=== PATIENT | male | born 1965 | race Caucasian/White ===

== ENCOUNTER 2016-12-25 16:37 | Emergency (ER) | payer SELFPAY ==
[2016-12-25] MEDS ORDERED: Ondansetron HCl/PF 4 MG/2 ML Vial ONE (16:49)
[2016-12-25] MEDS ORDERED: Ketorolac Tromethamine 30 MG/ML VIAL ONE (16:49)
[2016-12-25] MEDS ORDERED: diphenhydrAMINE HCl 50 MG/ML 1 ML VIAL ONE (16:49)
[2016-12-25 17:16] LABS: Blood, Urine Large (Negative); Clarity Turbid (Clear); Glucose, Urine (Dipstick) Negative (Negative); Leukocyte Negative (Negative); Nitrite Negative (Negative); Protein, Urine (Dipstick) 100 mg/dL (Neg-Trace); pH, Urine 8.5 (5.0-9.0)
[2016-12-25 17:18] LABS: #Basophils 0.1 thou/uL (0.0-0.2); #Lymphocytes 1.2 thou/uL (1.20-3.40); #Monocytes 0.5 thou/uL (0.11-0.59); #Neutrophils 11.9 thou/uL (1.40-6.50); %Basophils 0.4 % (0.0-1.0); %Eosinophils 0.3 % (0.0-10.0); %Lymphocytes 8.8 % (21.0-51.0); %Monocytes 3.8 % (0.0-10.0); %Neutrophils 86.8 % (42.0-75.0); Hemoglobin 16.1 g/dL (14.0-18.0); Mean Corpuscular HGB CONC 32.7 g/dL (32.0-36.0); Mean Corpuscular Hemoglobin 29.4 pg (27.0-31.0); Mean Corpuscular Volume 89.8 fl (80.0-94.0); Mean Platelet Volume 7.5 fL (7.4-10.4); Platelet Count 212 thou/uL (130-400); RBC Distribution Width 11.6 % (11.5-14.5); Red Blood Cell (RBC) Count 5.49 mill/uL (4.70-6.10); White Blood Cell (WBC) Count 13.7 thou/uL (4.8-10.8)
[2016-12-25 17:23] LABS: Amphetamine Not Detected (NotDetected); Barbiturates Screen Not Detected (NotDetected); Benzodiazepine Screen Not Detected (NotDetected); Cocaine Metabolite Screen Detected (NotDetected); Medtox Control Line Valid? VALID (VALID); Methadone Not Detected (NotDetected); Methamphetamine Not Detected (NotDetected); Opiate Screen Not Detected (NotDetected); Oxycodone Screen Not Detected (NotDetected); Phencyclidine (PCP) Not Detected (NotDetected); THC/Cannabinoid Screen Not Detected (NotDetected); Tricyclic Screen Not Detected (NotDetected)
[2016-12-25 17:23] LABS: INR-International Normal Ratio 1.1; PTT 26.4 SEC (22.9-36.1); Prothrombin Time 13.9 SEC (12.0-14.7)
[2016-12-25 17:25] LABS: Bilirubin Negative (Negative)
[2016-12-25 17:25] LABS: ALT (SGPT) 29 U/L (8-55); AST (SGOT) 18 U/L (5-34); Albumin 4.5 g/dL (3.5-5.0); Alkaline Phosphatase 76 U/L (40-150); Anion Gap 16 mmol/L (10-20); BUN (Urea Nitrogen) 19 mg/dL (8.9-20.6); Bilirubin, Total 0.5 mg/dL (0.2-1.2); Calc. Creatinine Clearance 0 mL/min (70-130); Calcium 9.6 mg/dL (7.8-10.44); Carbon Dioxide 26 mmol/L (22-29); Chloride 102 mmol/L (98-107); Estimated GFR-MDRD 67; Globulin 3.1 g/dL (2.4-3.5); Glucose 119 mg/dL (70-105); Potassium 4.1 mmol/L (3.5-5.1); Protein, Total 7.6 g/dL (6.0-8.3); Sodium 140 mmol/L (136-145)
[2016-12-25 17:26] LABS: Bacteria/HPF 1+ HPF (None Seen); RBC/HPF GREATER THAN 50-TNTC HPF (0-3); Squamous Epithelial 0-3 HPF (0-3); WBC/HPF 0-3 HPF (0-3)
[2016-12-25] MEDS ORDERED: HYDROcodone/Acetaminophen 5/325 mg Tablet ONE (17:37)
[2016-12-25] MEDS ORDERED: Tamsulosin HCl 0.4 MG CAP PO SCH (17:45)
--- NOTE | 2016-12-25 18:03 | CT ---
CT ABDOMEN AND PELVIS WITHOUT CONTRAST 12/25/2016 HISTORY: There is apparently a history of kidney stones x3, but I have no prior studies to compare with. TECHNIQUE: A spiral CT of the abdomen and pelvis is done using no oral or IV contrast, in a rental stone protoc ol. Axial slices are acquired, and then coronal and sagittal reconstructions are done. FINDINGS: Bilateral nonobstructing renal calculi are present. There is a very large, 6.1 cm, lucent structure attached to the upper pole of the left kidney that is likely a large cyst. Ultrasound would be mor e confirmatory. There is also a 4 mm stone in the distal left ureter, at the level of the acetabulu m. It is only causing very mild hydronephrosis. Elsewhere, the lung bases are clear. The liver is slightly generous in size, and there may be some fatty infiltration. The spleen, pancreas, gallbladder, adrenal glands, and abdominal aorta are unre markable in appearance, within the limitations of a noncontrast study. CT of the pelvis shows no pelvic masses, inflammatory changes, or free fluid. Incidentally noted was disk space narrowing at T12-L1 with degenerative change here. IMPRESSION: 1. A 4 mm distal left ureteral calculus at the acetabular level, causing minimal left hydronephrosi s. 2. Bilateral nonobstructing renal calculi. 3. Presumed large cyst of the upper left kidney. Ultrasound would be needed to confirm it internal ly. POS: HOME
== END 2016-12-25 17:48 | disposition home or self-care (01) ==
LOC: BURERS 16:37
DX: N13.2 Hydronephrosis with renal and ureteral calculous obstruction (principal); Z87.891 Personal history of nicotine dependence
CPT/HCPCS: 74176; 80053; 80306; 81003; 81015; 85025; 85610; 85730; 94760; 96374; 96375; J1200; J1885; J2270; J2405